=== PATIENT | male | born 1955 | race Hispanic/Latino ===

== ENCOUNTER → 2020-02-17 | Outpatient (CLI) | payer OTHER ==
[~2020-02-17] MED LIST: AMLO5TAB9 PO; ASPI-555 PO; CHLO25TA3 PO; CLOP75TA14 PO; IOHEXOL-350 50ML VIAL IV ONE; IOHEXOL-350 75 ML VIAL IV ONE; LOSA25TA41 PO; METO50TA18 PO; POTA-9 PO; PRAV80TA21 PO; TAMS-1 PO
== END | disposition home or self-care (01) ==
LOC: RAH 08:18
PROVIDERS: ATTEND Internal Medicine Cardiovascular Disease
DX: I71.4 Abdominal aortic aneurysm, without rupture (principal)
CPT/HCPCS: 75635; Q9967 ×2

== ENCOUNTER 2020-04-15 13:34 | Inpatient (IN) | payer OTHER ==
[~2020-04-15] VITALS: Ht 160 cm; Wt 70.4 kg
[2020-04-15] MEDS ORDERED: SODIUM CHLORIDE 0.9% 100 ML IV ONE (14:01)
[2020-04-15] MEDS ORDERED: CEFAZOLIN SODIUM 1 GM VIAL ONE (14:01)
[2020-04-15] MEDS ORDERED: ONDANSETRON HCL 4 MG/2 ML VIAL ONE (14:30)
[2020-04-15] MEDS ORDERED: SODIUM CHLORIDE 0.9% 1000ML 1,000 ML IV ONE (14:30)
[2020-04-15] MEDS ORDERED: MORPHINE SULFATE 4 MG/1ML SYG ONE (14:30)
[2020-04-15] MEDS ORDERED: ONDANSETRON HCL 4 MG/2 ML VIAL IVP PRN (15:45)
[2020-04-15] MEDS ORDERED: MORPHINE SULFATE 2 MG/ML 1ML SYG IVP PRN (15:45)
[2020-04-15] MEDS ORDERED: MORPHINE SULFATE 4 MG/1ML SYG IV PRN (15:45)
[2020-04-15] MEDS ORDERED: ACETAMINOPHEN 325 MG TAB PO PRN ×2 (15:45)
[2020-04-15 16:30] VITALS: BP 141/68; PULSE 81; RESP 18; TEMP 97.5
[2020-04-15] MEDS ORDERED: ACETAMINOPHEN-CODEINE 300/30MG TAB PO PRN ×2 (16:30)
[2020-04-15] MEDS: MORPHINE SULFATE 2 MG/ML 1ML SYG IVP PRN (16:49)
[2020-04-15] MEDS: SODIUM CHLORIDE 0.9% 1000ML 1,000 ML IV SCH ×2 (16:52→21:44)
--- NOTE | 2020-04-15 17:09 | NUR ---
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 Plastic wrapping and gauze 4x4's from ER now completely soaked, lots of oozing onto underpad. Notified Dr. Wetzel, rec'd orders to place hemostatic dressing, wrap with katie wrap or coban and leave alone. Per MD orders, wrapping removed. Steady, quick drip from 4th and 5th finger. Applied quick clot dressings then wrapped with acewrap and coban. Elevated above level of heart. Upon seeing large amount of blood, pt became pale and dizzy. BP 70/39. Lowered HOB, called to admitting MD Dr. Mcclendon. Rec'd orders for 500 CC ns bolus, recheck CBC and call results.
--- NOTE | 2020-04-15 18:00 | NUR ---
Pt now feeling much better, BP recheck 127/79. Sitting up eating dinner. No further bleeding noted to left hand.
[2020-04-15] MEDS ORDERED: SODIUM CHLORIDE 0.9% 1000ML 1,000 ML IV STA (19:27)
[2020-04-15 19:55] VITALS: BP 113/65; PULSE 85; RESP 19; TEMP 97.5
[2020-04-15] MEDS: CEFAZOLIN SODIUM 1 GM VIAL IVP SCH (21:44)
[2020-04-15] MEDS: FAMOTIDINE/PF 20 MG/2 ML VIAL IV SCH (21:44)
[2020-04-16] MEDS: MORPHINE SULFATE 2 MG/ML 1ML SYG IVP PRN ×4 (00:33→21:33)
[2020-04-16 00:43] VITALS: BP 99/69; PULSE 96; RESP 19; TEMP 98.1
[2020-04-16 04:34] VITALS: BP 126/69; PULSE 65; RESP 19; TEMP 98.2
[2020-04-16] MEDS: CEFAZOLIN SODIUM 1 GM VIAL IVP SCH ×3 (05:32→21:30)
--- NOTE | 2020-04-16 07:47 | NUR ---
PATIENT UPDATE Pt scheduled for surgery on the left hand today by Dr. Wetzel . Pt still pending Cardiac clearance by Dr. Wood . supervisor industrial garment DJ made aware, she went ahead and called Dr. Wetzel who ordered to just keep the pt npo. 12 lead ekg done, pending 2d echo also in process. Patient medicated once for pain last night with morphine 2 mg slow iv push which afforded relief, pt slept well overnight. Left hand dressing with minimal drainage, extremity kept elevated over a pillow overnight. Continues with the iv fluids at 75 cc/hr as per order. Larry scd's applied to larry lower extremities for vte protocol.
[2020-04-16 08:00] VITALS: BP 137/78; PULSE 64; RESP 20; TEMP 98.6
[2020-04-16] MEDS: FAMOTIDINE/PF 20 MG/2 ML VIAL IV SCH ×2 (08:12→21:30)
[2020-04-16 12:00] VITALS: BP 133/71; PULSE 66; RESP 19; TEMP 98.2
--- NOTE | 2020-04-16 12:00 | NUR ---
cm note met with patient and states resides at home alone. independent with adls and ambulation. no dme. states daughter will be coming in to assist him. states no dc needs. Addendum: 04/16/20 at 1201 by NAVID RAPP CM Amended: Links added.
[2020-04-16 16:00] VITALS: BP_SYST 126; BP_SYST 132; BP_DIAS 51; BP_DIAS 74; PULSE 74; PULSE 79; RESP 18; TEMP 96.8
[2020-04-16] MEDS: SODIUM CHLORIDE 0.9% 1000ML 1,000 ML IV SCH ×2 (18:14→21:24)
--- NOTE | 2020-04-16 18:28 | NUR ---
CARDIAC CLEARANCE CONTACTED DR. BUCHANAN REGARDING CLEARANCE FOR PATIENT SCHEDULED FOR SURGERY TOMORROW. DR. BUCHANAN ADVISED PATIENT WAS LOW RISK. CHARGE NURSE MARY ADVISED DR. GOMEZ OF THE INFORMATION.
[2020-04-16 21:03] VITALS: BP_SYST 119; BP_SYST 147; BP_DIAS 61; BP_DIAS 80; PULSE 67; RESP 20; TEMP 98.2
[2020-04-17] VITALS (26 sets, daily range): BP systolic 117–152; BP diastolic 60–84; PULSE 61–84; RESP 13–20; TEMP 96.5–98.6
[2020-04-17] MEDS: MORPHINE SULFATE 2 MG/ML 1ML SYG IVP PRN ×3 (00:45→04:17)
[2020-04-17] MEDS: SODIUM CHLORIDE 0.9% 1000ML 1,000 ML IV SCH (04:00)
[2020-04-17] MEDS: CEFAZOLIN SODIUM 1 GM VIAL IVP SCH ×2 (05:43→14:15)
--- NOTE | 2020-04-17 06:43 | NUR ---
PATIENT UPDATE Pt keeping npo post mn, going for orif of the left hand with possible pinning and skin grafting. Medicated 4 x during the night with morphine 2 mg slow iv push. Left hand dressing still with the same amt of drainage from the day before, extremity elevated over 1 pillow. Patient afebrile , vital signs stable.
--- NOTE | 2020-04-17 07:42 | NUR ---
SURGERY OT TEAM HERE TO TRANSFER PATIENT TO HOLDING AREA. PATIENT IS STILL NPO, STABLE AND IS READY FOR SURGERY.
[2020-04-17] MEDS ORDERED: LACTATED RINGERS 1000ML 1,000 ML IV ONE (07:52)
[2020-04-17] MEDS: FAMOTIDINE/PF 20 MG/2 ML VIAL IV SCH (08:05)
[2020-04-17] MEDS ORDERED: LIDOCAINE PF 2% 5ML ABBOJECT ONE (08:27)
[2020-04-17] MEDS ORDERED: SUCCINYLCHOLINE 200MG/10ML SYR ONE (08:27)
[2020-04-17] MEDS ORDERED: PROPOFOL 10 MG/ML 20ML VIAL IV ONE (08:28)
[2020-04-17] MEDS ORDERED: FENTANYL CITRATE PF 50 MCG/1 ML 2ML VIAL ONE (08:28)
[2020-04-17] MEDS ORDERED: CEFAZOLIN SODIUM 1 GM VIAL ONE (08:55)
[2020-04-17] MEDS ORDERED: PHENYLEPHRINE HCL 10 MG/ML 1ML VIAL IV ONE (08:56)
[2020-04-17] MEDS ORDERED: SODIUM CHLORIDE 0.9% 10 ML VIAL ONE (08:56)
[2020-04-17] MEDS ORDERED: MEPERIDINE-PF 25 MG/ML SYG ONE ×2 (10:16→10:30)
--- NOTE | 2020-04-17 11:10 | NUR ---
BACK FROM SURGERY PATIENT BACK FROM PACU IN STABLE CONDITION. POST OP V/S HAVE BEEN INITIATED. REORIENTED TO ROOM AND USE OF CALL LIGHT. BED IS IN LOWEST POSITION AND LOCKED. LEFT HAND SURGICAL SITE IS LIGHTLY COVERED WITH GAUZE. NO ACTIVE DRAINAGE NOTED. WILL CONTINUE TO MONITOR.
--- NOTE | 2020-04-17 14:38 | NUR ---
INSTRUCTIONS DISCHARGE INSTRUCTIONS GIVEN TO PATIENT USING TEACH BACK. DRESSING TO LEFT HAND REENFORCED WITH 4X4 AND KERLIX D/T SMALL AMOUNT OF SANGUINEOUS DISCHARGE. IV TO THE RIGHT WRIST DISCONTINUED WITH TIP INTACT. BLEEDING CONTROLLED AND SITE COVERED WITH GAUZE AND SECURED WITH A BAND-AID. NEW PRESCRIPTIONS PLACED IN CHART ALONG WITH ALL PRINTED INFORMATION AND MD INSTRUCTIONS. NO QUESTIONS OR CONCERNS VOICED. PENDING RIDE HOME.
== END 2020-04-17 15:25 | disposition home or self-care (01) | DRG 906 ==
LOC: EDH 13:34 → EDHIP 14:50 → 3BH 16:25
PROVIDERS: ADMIT Hospitalist; ATTEND Hospitalist
PROC: 0XM Anatomical Regions, Upper Extremities, Reattachment (ICD-10-PCS; 2020-04-17)
PROC: 0XM Anatomical Regions, Upper Extremities, Reattachment (ICD-10-PCS; 2020-04-17)
PROC: 0PHV04Z Insertion of Internal Fixation Device into Left Finger Phalanx, Open Approach (ICD-10-PCS; 2020-04-17)
PROC: 0PHV04Z Insertion of Internal Fixation Device into Left Finger Phalanx, Open Approach (ICD-10-PCS; 2020-04-17)
PROC: 0PHV04Z Insertion of Internal Fixation Device into Left Finger Phalanx, Open Approach (ICD-10-PCS; 2020-04-17)
PROC: 0XM Anatomical Regions, Upper Extremities, Reattachment (ICD-10-PCS; principal; 2020-04-17 08:36)
DX: S68.613A Complete traumatic transphalangeal amputation of left middle finger, initial encounter (principal); S68.615A Complete traumatic transphalangeal amputation of left ring finger, initial encounter; W31.9XXA Contact with unspecified machinery, initial encounter; S63.22 Subluxation of unspecified interphalangeal joint of finger; I10 Essential (primary) hypertension; E78.5 Hyperlipidemia, unspecified; I35.1 Nonrheumatic aortic (valve) insufficiency; N40.0 Benign prostatic hyperplasia without lower urinary tract symptoms; I25.10 Atherosclerotic heart disease of native coronary artery without angina pectoris; S68.611A Complete traumatic transphalangeal amputation of left index finger, initial encounter; I73.9 Peripheral vascular disease, unspecified; G47.33 Obstructive sleep apnea (adult) (pediatric); Z82.3 Family history of stroke; Z83.3 Family history of diabetes mellitus; Z82.0 Family history of epilepsy and other diseases of the nervous system; I25.2 Old myocardial infarction; Z95.5 Presence of coronary angioplasty implant and graft; Y93.89 Activity, other specified; Y92.89 Other specified places as the place of occurrence of the external cause; Y99.8 Other external cause status

== ENCOUNTER → 2023-07-12 | Outpatient (CLI) | payer OTHER ==
[~2023-07-12] MED LIST changes: -AMLO5TAB9 PO; -ASPI-555 PO; +ASPI-556 PO; +CLOP-31 PO; -CLOP75TA14 PO; -IOHEXOL-350 50ML VIAL IV ONE; -IOHEXOL-350 75 ML VIAL IV ONE; +POTA-193 PO; -POTA-9 PO; -PRAV80TA21 PO; +PREG50CA64 PO
== END | disposition home or self-care (01) ==
LOC: SHCH 09:51
PROVIDERS: ATTEND Internal Medicine Cardiovascular Disease
DX: I65.23 Occlusion and stenosis of bilateral carotid arteries (principal); I25.10 Atherosclerotic heart disease of native coronary artery without angina pectoris; Z95.5 Presence of coronary angioplasty implant and graft; Z95.828 Presence of other vascular implants and grafts
CPT/HCPCS: 93880

== ENCOUNTER → 2024-08-05 | Outpatient (CLI) | payer OTHER ==
[~2024-08-05] MED LIST changes: +IOHEXOL 350 MG/ML 100ML INFUS..BTL IV ONE
== END | disposition home or self-care (01) ==
LOC: RAH 10:32
PROVIDERS: ATTEND Internal Medicine Cardiovascular Disease
DX: I72.3 Aneurysm of iliac artery (principal); I71.40 Abdominal aortic aneurysm, without rupture, unspecified; I71.02 Dissection of abdominal aorta; I51.7 Cardiomegaly; K80.20 Calculus of gallbladder without cholecystitis without obstruction; N28.1 Cyst of kidney, acquired; I70.0 Atherosclerosis of aorta
CPT/HCPCS: 74174; 71275; Q9967

== ENCOUNTER → 2024-08-12 | Outpatient (CLI) | payer OTHER ==
[~2024-08-12] MED LIST changes: -IOHEXOL 350 MG/ML 100ML INFUS..BTL IV ONE
== END | disposition home or self-care (01) ==
LOC: SHCH 10:19
PROVIDERS: ATTEND Internal Medicine Cardiovascular Disease
DX: R01.1 Cardiac murmur, unspecified (principal)
CPT/HCPCS: 93306

== ENCOUNTER 2025-01-18 08:07 | Day surgery (SDC) | payer OTHER ==
[2025-01-18] VITALS (11 sets, daily range): BP systolic 101–162; BP diastolic 47–82; PULSE 55–69; RESP 14–17; TEMP 97.2–97.6
[~2025-01-18] VITALS: Ht 160 cm; Wt 70.3 kg
[~2025-01-18 08:07] MED LIST changes: -TAMS-1 PO; +TAMS-55 PO
[2025-01-18] MEDS ORDERED: LOSA50TA64 PO (08:54)
[2025-01-18] MEDS: 0.9%NACL 1000ML 1,000 ML IV ONE (08:55)
[2025-01-18] MEDS ORDERED: PREG100C56 PO (09:06)
[2025-01-18] MEDS ORDERED: ROSU5TAB51 PO (09:06)
[2025-01-18] MEDS ORDERED: proPOFol 10 MG/ML 20ML VIAL IV ONE (10:27)
--- NOTE | 2025-01-18 12:02 | NUR ---
Full and complete discharge instructions given to Patient and Family both verbally and in writing. Explained GI procedure precautions and follow up. All questions answered. PIV removed with catheter tip intact. Home with Family W/C to POV.
== END 2025-01-18 12:00 | disposition home or self-care (01) ==
LOC: ENDO 08:07 → DAH 08:22 → ENDO 12:00
PROVIDERS: ATTEND Internal Medicine Gastroenterology
DX: Z12.11 Encounter for screening for malignant neoplasm of colon (principal); D12.2 Benign neoplasm of ascending colon; D12.3 Benign neoplasm of transverse colon; D12.4 Benign neoplasm of descending colon; I25.10 Atherosclerotic heart disease of native coronary artery without angina pectoris; G47.33 Obstructive sleep apnea (adult) (pediatric); K80.20 Calculus of gallbladder without cholecystitis without obstruction; I73.9 Peripheral vascular disease, unspecified; I71.20 Thoracic aortic aneurysm, without rupture, unspecified; K64.8 Other hemorrhoids; I10 Essential (primary) hypertension; Z86.0100 Personal history of colon polyps, unspecified; Z99.89 Dependence on other enabling machines and devices; Z79.01 Long term (current) use of anticoagulants; Z79.899 Other long term (current) drug therapy
CPT/HCPCS: 45380; 45385; J7030; J2704; A4620; A4215; J3490